=== PATIENT | female | born 1960 | race African-American/Black ===

== ENCOUNTER 2024-03-30 05:39 | Emergency (ER) | payer MEDICAID, OTHER ==
[~2024-03-30] VITALS: Ht 162.6 cm; Wt 70.0 kg
[2024-03-30 05:54] VITALS: O2SAT 100
[2024-03-30 08:32] VITALS: BP 155/80; PULSE 80; RESP 16; TEMP 98
[2024-03-30] MEDS: IBUPROFEN 600MG TABLET PO ONE (08:32)
[2024-03-30] MEDS: ACETAMINOPHEN 325MG TABLET PO ONE (08:32)
[2024-03-30 09:00] LABS: BASOPHILS % 0.5 % (0.0-2.0); EOSINOPHILS % 0.2 % (0.0-5.0); HEMATOCRIT. 40.4 % (36.0-48.0); HEMOGLOBIN. 13.4 g/dL (12.0-16.0); LYMPHOCYTES % 26.4 % (20.0-50.0); MEAN CORPUSCULAR HEMOGLOBIN 30.1 pg (28.0-32.0); MEAN CORPUSCULAR VOLUME 91.2 fL (81.0-99.0); MEAN PLATELET VOLUME 9.1 fl (7.4-10.4); MONOCYTES % 9.5 % (2.0-8.0); NEUTROPHILS % 63.4 % (40.0-76.0); PLATELET 248 x1000/uL (130-400); RED BLOOD CELL COUNT 4.43 mill/uL (4.2-5.4); RED CELL DISTRIBUTION WIDTH 12.9 % (11.6-14.6); WHITE BLOOD COUNT 3.3 x1000/uL (4.5-11.0)
[2024-03-30 09:18] LABS: CHLORIDE 109 mEq/L (98-107); POTASSIUM 4.2 mEq/L (3.5-5.1); SODIUM 143 mEq/L (136-145)
[2024-03-30 09:19] LABS: CALCIUM 9.4 mg/dL (8.7-10.4); CARBON DIOXIDE 29 mEq/L (21-32)
[2024-03-30 09:24] LABS: CREATININE 0.7 mg/dL (0.6-1.0); GLUCOSE 91 mg/dL (70-105); UREA NITROGEN BLOOD 22 mg/dL (9-23)
[2024-03-30] MEDS ORDERED: T3 PO (09:35)
== END 2024-03-30 10:56 | disposition home or self-care (01) ==
LOC: ER 05:39
DX: M79.18 Myalgia, other site (principal)
CPT/HCPCS: 36415; 72170; 72220; 80048; 85025; 99284